=== PATIENT | female | born 1975 | race African-American/Black ===

== ENCOUNTER 2018-01-26 14:05 | Outpatient (CLI) | payer BC, OTHER ==
--- NOTE | 2018-01-26 16:35 | RAD ---
LEFT KNEE TWO VIEWS: HISTORY: Pain. COMPARISON: None. FINDINGS: Uncomplicated left knee arthroplasty. No perihardware lucency. No significant joint effusion. IMPRESSION: Uncomplicated left knee arthroplasty. POS: [id number]
--- NOTE | 2018-01-26 16:37 | RAD ---
LUMBAR SPINE 3 VIEWS: Date: 01/26/18 HISTORY: Low back pain. FINDINGS: Small ribs at the first lumbar level. Pedicles are intact. Leftward convex curvature. Vertebral body heights and AP alignment are maintained. No acute fracture or dislocation. Degenerative changes of ea ch hip are somewhat pronounced for the patient's age. IMPRESSION: 1. Leftward complex curvature of the lumbar spine. No evidence of compression fracture. 2. Degenerative changes of the hips, left greater than right. POS: [facility]
== END 2018-01-26 14:06 | disposition home or self-care (01) ==
LOC: NAV RAD 14:05
PROVIDERS: ATTEND Family Medicine
DX: Z02.71 Encounter for disability determination (principal); G35 Multiple sclerosis; M17.0 Bilateral primary osteoarthritis of knee; M43.8X6 Other specified deforming dorsopathies, lumbar region; M16.0 Bilateral primary osteoarthritis of hip; Z96.652 Presence of left artificial knee joint
CPT/HCPCS: 72100